=== PATIENT | male | born 1935 | race Caucasian/White ===

== ENCOUNTER 2017-03-26 19:58 | Emergency (ER) | payer MEDICARE, OTHER, SELFPAY ==
[2017-03-26 19:59] VITALS: BP 133/69; PULSE 89; RESP 15; TEMP 37.2; O2SAT 94; BMI 23.9
[2017-03-26 20:28] LABS: Mucous, Urine 0 SEEN /hpf (<or=2+)
--- NOTE | 2017-03-26 20:28 | ED.DCSUM_ITS ---
- ER Visit Summary Date of Service: 03/26/17 Chief Complaint: Fever, myalgias History of Present Illness: The patient is a 81 M who presents to the emergency department with 4 days of myalgias and arthralgias. The patient also had decreased energy. He states over the past 8 days, he has had some urinary frequency and urgency. He states that he has had no pain with urination. He denies any rectal pain or change in bowel habits. Over the past few days, he has had some chills and myalgias. He states he just feels weak and rundown. He spoke with his physician, Dr. Miller, who referred him to the emergency department. He denies headache or blurry vision. He has not taken any medication for this. He denies any diarrhea or constipation. Physical Examination: Vital signs reviewed General: Well-nourished, well-developed Head: Normocephalic, atraumatic Eyes: Pupils equal and reactive, extraocular muscles intact Neck, supple, no lymphadenopathy Heart: Regular rate and rhythm Respiratory: No distress, clear bilaterally Abdomen: Soft, nontender, nondistended, no peritoneal signs Back: Nontender Extremities: Nontender, no edema, no cords Skin: Normal color no rash Neuro: Alert and oriented, no focal or lateralizing deficits Test Results: [] Emergency Department Course and Treatment: The patient is very well-appearing on exam. He has no significant pain. He is up and having some myalgias. I did obtain a flu which is negative. His chest x-rays unremarkable. Screening labs show mild leukocytosis but are otherwise unremarkable. His urine does show definitive evidence of infection. The patient has no fever here. He has no other systemic symptoms. I do feel that he is safe for outpatient therapy. I discussed the patient with Dr. Miller for close follow-up. He will be given a dose of IV Rocephin. His urine is cultured. He will be continued on Keflex at home. The patient has any return return of symptoms or worsening symptoms, he will return to the emergency department. He and are comfortable with this plan of care. Treatment Plan: [] Disposition: Discharge Impression:. Acute cystitis This note was generated with [employer] software. It may contain incorrect words, spelling, and punctuation that were not noted in review of the chart prior to signing ED Disposition - Plan for ED Patient: Disposition: Home or Assisted Living Chief Complaint: General Illness Instructions: ED UTI Cystitis Male Prescriptions: Cephalexin [Keflex] 500 mg PO Q8 #30 cap Referrals: Arlin Tapia DO [Primary Care Provider] -
[2017-03-26 20:30] LABS: Color, Urine Yellow (Yellow); Glucose, Dipstick Normal (Normal); Ketone-Dipstick 5 mg/dl (Negative); Leukocyte Esterase-Dipstick 500 /ul (Negative); Nitrite-Dipstick Positive (Negative); Occult Blood-Urine 150 /ul (Negative); Protein-Dipstick 100 mg/dl (Negative); Urine Bilirubin Dipstick Negative (Negative); Urine Clarity Sl. Cloudy (Clear); Urine Urobilinogen 1 mg/dl (Normal)
[2017-03-26 20:35] LABS: Absolute Lymphocyte Count 1.67 X10^3/ul (0.83-4.51); Absolute Neutrophil Count 8.4 X10^3/uL (2.0-7.7); Basophil# 0.03 X10^3/uL; Basophil% 0.3 % (0-1); Eosinophil# 0.08 X10^3/uL; Eosinophils% 0.7 % (0-5); Hematocrit 35.5 % (40-54); Hemoglobin 11.4 g/dl (13.0-16.5); Lymphocyte # 1.67 X10^3/ul (4.0); Lymphocyte % 14.1 % (19-41); Mean Corp Hgb Conc 32.1 g/gl (32-36); Mean Corpuscular Hgb 26.3 pg (27.0-32.0); Mean Platelet Vol. 9.6 fl (6.2-12.0); Monocyte# 1.64 X10^3/uL; Monocyte% 13.8 % (0-10); Neutrophil # 8.44 X10^3/uL (2.7-7.7); Platelet Count 235 K/mm3 (150-450); RBC Distribution Width CV 13.7 % (11.6-14.6); RBC Distribution Width SD 41.8 fl (35.1-43.9); Red Blood Count 4.33 M/mm3 (4.6-6.2); White Blood Count 11.9 K/mm3 (4.4-11.0)
[2017-03-26 20:36] LABS: Differential Indicated SCAN CRITERIA MET; POSITIVE COUNT NO; POSITIVE DIFFERENTIAL YES; POSITIVE MORPHOLOGY NO
[2017-03-26 20:36] LABS: White Blood Cells >100 SEEN /hpf (0-5)
[2017-03-26 20:37] LABS: Amorphous Sediment 1+; Bacteria 4+ /hpf (None Seen); Red Blood Cells-Urine 5-10 SEEN /hpf (0-5)
[2017-03-26 20:38] LABS: Squamous Epithelial Cells - UA 0-5 SEEN /hpf (0-5)
[2017-03-26 20:41] LABS: Anion Gap 9 (5-15); BUN 21 mg/dL (7-18); BUN/Creat Ratio 21.6 RATIO (10-20); Calcium,Total 8.9 mg/dL (8.5-10.1); Chloride 102 mmol/L (98-107); Creatinine, Serum 0.97 mg/dL (0.70-1.30); EST Glomerular Filtration Rate 79 mL/min (>60); Est Glom Filt Rate - Afr Amer 95 mL/min (>60); Estimated Creatinine Clearance 51.95 ml/min; Glucose 136 mg/dL (74-106); Potassium 3.8 mmol/L (3.5-5.1); Sodium Level 136 mmol/L (136-145)
--- NOTE | 2017-03-26 20:44 | RAD_ITS ---
XR Chest 2 Views INDICATION: FEVER COMPARISON: April 2015 TECHNIQUE: 2 views of the chest FINDINGS: Sternotomy wires and mediastinal clips are noted. The heart size is within normal limits. Mediastinal and bilateral hilar calcified lymph nodes are seen. The lungs demonstrate coarsened interstitial markings and are otherwise clear. RAD/Chest PA and Lateral IMPRESSION: COPD. No active infiltrate. at 2111 Reported and signed by: Mi Ramírez MD Electronically Signed: Mi Ramírez MD at 20:09 EST Tel , Service support ,
[2017-03-26 21:02] LABS: Hypochromasia 1+
--- NOTE | 2017-03-26 21:08 | NURSING ---
PAGED DR. SIMMONS
--- NOTE | 2017-03-26 21:15 | NURSING ---
DR. SIMMONS CALLED BACK
[2017-03-26] MEDS: Ceftriaxone 1 GM/50 ML BAG IV (21:27)
[2017-03-26 22:38] VITALS: BP 129/87; PULSE 79; RESP 18; O2SAT 98
[2017-03-26 22:40] VITALS: BP 129/68; PULSE 79; RESP 18; O2SAT 95
== END 2017-03-26 22:42 | disposition home or self-care (01) ==
PROVIDERS: Emergency Provider Emergency Medicine; Family Provider Internal Medicine; PCP Internal Medicine
DX: N30.00 Acute cystitis without hematuria (principal); D72.829 Elevated white blood cell count, unspecified; I25.10 Atherosclerotic heart disease of native coronary artery without angina pectoris; I25.2 Old myocardial infarction; I10 Essential (primary) hypertension; Z79.01 Long term (current) use of anticoagulants; Z79.84 Long term (current) use of oral hypoglycemic drugs; Z79.899 Other long term (current) drug therapy
CPT/HCPCS: 71046; 80048; 81001; 85025; 87077; 87086; 87088; 87186; 87804; 96365; 99283; J7030; J7050; A4216

== ENCOUNTER → 2017-04-27 15:09 | Outpatient (CLI) | payer MEDICARE, OTHER, SELFPAY ==
--- NOTE | 2017-04-27 15:12 | RAD_ITS ---
STUDY: X-RAY - PELVIS AND RIGHT HIP REASON FOR EXAM: Right hip and low back pain. TECHNIQUE: Radiological exam, hip, unilateral, with pelvis when performed; 2 or 3 views. COMPARISON: None. FINDINGS: There is vascular calcification. Normal bilateral iliac wings, sacroiliac joints and visualized sacrum. Normal bilateral superior and inferior pubic rami. Normal pubic symphysis. Normal bilateral ischial tuberosities. Normal visualized femoral head. Normal acetabulum. There is a very small marginal osteophyte of the right femoral head without joint space narrowing. RAD/Hip 2-3 Views with Pelvis IMPRESSION: Very small marginal osteophyte of the right femoral head without joint space narrowing. Electronically Signed: Ethan Mcknight MD at 9:55 EDT Tel , Service support ,
--- NOTE | 2017-04-27 15:12 | RAD_ITS ---
STUDY: X-RAY - LUMBAR SPINE REASON FOR EXAM: Male, 81 years old. Back pain with right radiculopathy TECHNIQUE: Five view(s) of the lumbar spine were obtained. COMPARISON: None FINDINGS: Normal lumbar lordosis. There is very minimal S-shaped scoliosis of the lower spine. There is minimal retrolisthesis of L5 on S1. There are small osteophytes scattered in the lumbar spine. Vertebral body heights are maintained. There is marked disc space narrowing at L5-S1. There is moderate disc space narrowing at L1-2, L3-4 and L4-5. There is atherosclerotic calcification of the abdominal aorta without a demonstrated aneurysm. RAD/L/S Spine Min 4 Views IMPRESSION: There are marked degenerative disc changes at L5-S1. There are moderate degenerative disc changes at L1-2, L3-4 and L4-5. Electronically Signed: Cherri Josue MD at 9:41 EDT Tel Direct: [phone], Service support ,
== END ==
PROVIDERS: Family Provider Internal Medicine; PCP Internal Medicine; Visit Provider Internal Medicine
DX: M54.5 Low back pain (principal); M79.609 Pain in unspecified limb
CPT/HCPCS: 72110; 73502

== ENCOUNTER → 2017-05-02 08:43 | Outpatient (CLI) | payer MEDICARE, OTHER, SELFPAY ==
--- NOTE | 2017-05-02 08:45 | RAD_ITS ---
STUDY: X-RAY - ESOPHAGUS (BARIUM SWALLOW) WITH FLUOROSCOPY REASON FOR EXAM: Male, 81 years old. Dysphagia for solids. TECHNIQUE: 19 view(s) of the esophagus were obtained following swallowing of barium. FLUOROSCOPY TIME (if supplied): (0:30) minutes/seconds COMPARISON: None. FINDINGS: There is no demonstrated esophageal foreign body. There is no demonstrated stricture or mucosal abnormality. Moderate sized hiatal hernia with gastroesophageal reflux. The patient ingested a 12 mm tablet of barium without any difficulty. There is atherosclerotic tortuosity of the aortic arch and descending thoracic aorta. Normal visualized pulmonary parenchyma. There are diffuse degenerative changes of the visualized thoracic spine. RAD/Esophagus Only IMPRESSION: Moderate sized hiatal hernia with gastroesophageal reflux. Electronically Signed: Adair Georges MD at 10:32 EDT Tel [phone], Service support ,
== END ==
PROVIDERS: Family Provider Internal Medicine; PCP Internal Medicine; Visit Provider Internal Medicine
DX: I13.10 Hypertensive heart and chronic kidney disease without heart failure, with stage 1 through stage 4 chronic kidney disease, or unspecified chronic kidney disease (principal)
CPT/HCPCS: 74220

== ENCOUNTER 2017-06-08 14:00 | Outpatient (RCR) | payer MEDICARE, OTHER, SELFPAY ==
--- NOTE | 2017-05-30 09:20 | HP.PTEVAL_ITS ---
Patient's Visit Information JM HARE is a 81 year old M referred to Physical Therapy by Arlin Tapia DO with a diagnosis of LOW BACK PAIN. Date of Evaluation: 05/30/17 Physical Therapist: Anastasia Gutierrez - Visit Plan Frequency: 2-3x /Week Duration: 4-6 Weeks Plan: GAIT TRAINING WITH STRAIGHT CANE. LUMBAR US. POSTURE CORRECTION/ STRENGTHENING, INSTRUCTION IN APPROPRIATE BODY MECHANICS AND ACTIVITY MODIFICATIONS. DLS STARTING WITH A NEUTRAL SPINE PROGRESSING ROM TOLERATED. TORRES LE ROM, STRETCHING AND STRENGTHENING. HEP INSTRUCTION. - Subjective Subjective: Diagnosis: LOW BACK PAIN. 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 Disability: NO. Present symptoms: LOW BACK PAIN. PATIENT REPORTS HE REALLY DOESN'T GET PAIN, NUMBNESS OR TINGLING IN HIS LEGS BUT HE GET LEG WEAKNESS RIGHT > LEFT. Present since: YEARS. Pain Scale: WORST 5/10, LEAST 0/10. Currently: 03/26. Commenced as a result of: NO APPARENT REASON. Symptoms at onset: RIGHT LEG WEAKNESS. Worse: SHOPPING, WORKING OUTSIDE, WALKING A LOT AND STANDING. Better: SITTING, LYING DOWN. Disturbed sleep: NO. Previous history/Previous treatment: UNREMARKABLE BUT PATIENT REPORTS HE NOTICED HIS RIGHT LE WEAKNESS AFTER HIS STROKE ABOUT 15 YEARS AGO. Coughing/ sneezing/straining: NEGATIVE. Gait: PATIENT REPORTS THAT GRADUALLY OVER TIME HIS RIGHT LE HAS GOTTEN WEAKER AND HE HAS STARTED TO LIMP AND SOMETIMES DRAG HIS RIGHT LEG. FIRST THING IN THE MORNING HE CAN WALK PRETTY GOOD BUT SOON AFTER THE DAY STARTS TO PROGRESS HE STARTS TO LIMP AND HIS RIGHT LEG DOESN'T WANT TO WORK RIGHT. HE ALS HAS TROUBLE PUTTING HIS SHOE AND SOCK ON HIS RIGHT LE COMPARED TO THE LEFT. STATES HE TO BE CAREFUL NOT TO MOVE TOO FAST WALKING SO HE DOESN'T TRIP. HE HAS FALLEN DUE TO GETTING HIS FEET TANGLED UP BUT STATES IT HAS BEEN AWHILE SINCE HE FELL. Difficulty initiating urinatin: NO. Accidents: NO. Unexplained weight loss: NO. Imaging: RECENT LUMBAR X- RAY FINDINGS: Normal lumbar lordosis. There is very minimal S-shaped scoliosis of the. lower spine. There is minimal retrolisthesis of L5 on S1. There are small osteophytes scattered in the lumbar spine. Vertebral body. heights are maintained. There is marked disc space narrowing at L5-S1. There is moderate disc space narrowing at L1-2, L3-4 and L4-5. There is atherosclerotic calcification of the abdominal aorta without a. demonstrated aneurysm. PMH: QUADRUPLE BYPASS ABOUT 10 YEARS AGO. STROKE ABOUT 15 YEARS AGO. SEE MORE BELOW. PATIENT RELATES SOME OF THE WEAKNESS IN HIS RIGHT LEG TO HIS STROKE. - Objective Sitting Posture: POOR. Standing Posture: POOR. Lordosis: REDUCED. Lateral shift: NO. Relevant shift: N/A. Active Correction of posture: NE. Other Observations: INDEP GAIT INTO PT WITHOUT AD LIMPING ON RIGHT LE. HE STUMBLED TURNING IN THE TREATMENT ROOM BUT REGAINED HIS BALANCE INDEP'LY. HIS IS REALLY UNSAFE WITHOUT AD DUE TO DECREASED RIGHT LE PROPRIOCEPTION AND WEAKNESS BUT PATIENT IS RELUCTANT TO USE AD BUT IT SEEMS THAT HE WILL CONSIDER. Motor deficit: LLE STRENGTH 5/5 WITH MMT. RIGHT LE: HIP 3-/5, KNEE EXT 3-/5, KNEE FLEX 4/5, ANKLE DORSIFLEX 4-/5. Sensory deficit: TORRES LE LIGHT TOUCH SENSATION IS INTACT AND SYMMETRICAL. ROM deficit: TIGHT TORRES HS'S, GASTROC SOLEUS COMPLEXS AND HIP FLEXORS RIGHT > LEFT. PATIENT ABLE TO DO SKTC TORRES WITHOUT INCREASED HIP PAIN. Reflexes: 2/2 TORRES LE'S. Dural Signs: NEGATIVE TORRES LE DURAL SIGNS. Lumbar mvmt loss: flex - MOD. ext - MICHAEL. R SG - MICHAEL. L SG - MOD. Core strength: POOR. Palpation: NO ACUTE TENDERNESS WITH THORACIC AND LUMBAR SPINE PALPATION. ALSO NOT TENDER IN PELVIS OR HIPS. - Goals Goal 1:: DECREASE C/O LOW BACK AND RLE SX'S. Goal Time Frame: 4-6 Weeks Goal 2:: IMPROVE WALKING, STANDING, LIFTING, STANDING, SOCIAL LIFE AND HOMEMAKING FUNCTION Goal Time Frame: 4-6 Weeks Goal 3:: INSTRUCT IN PROPHYLAXIS Goal Time Frame: 4-6 Weeks - Rehabilitation Potential Rehabilitation Potential: Fair - Anticipated Interventions Patient/Client Instruction: Educate patient on: Condition, Plan of Care, Risk Factors, Benefits of Fitness Program For the Purpose of:: To improve self management Therapeutic Exercise to Include: Strength training, Body mechanics, Postural training, Flexibilty training, Dynamic Lumbar Stabilization For the Purpose of:: To improve ability of physical actions for home/community/ work/leisure Functional Training to Include: Gait training For the Purpose of:: To improve safety with gait Manual Therapy Techniques to Include: Soft tissue mobilization For the Purpose of:: To decrease pain, To increase ROM Ultrasound (thermal/non thermal): Yes For the Purpose of:: To decrease pain, To increase ROM Thank you for the opportunity to evaluate your patient. For Medicare and Medicare HMO plans, please review the plan of care and approve it. It will need to be FAXED BACK to us at [phone] for Medicare purposes. Please let me know if there are questions or concerns regarding this plan of care. Physician Signature: Date:
--- NOTE | 2017-09-18 12:15 | HP.PTDCNRP_ITS ---
HP - Discharge Summary (1) - Patient Information JM HARE was seen in my office for initial evaluation on 05/30/17. The following Plan of Care was established for this patient: Initial Frequency: 2-3x /Week Initial Duration: 4-6 Weeks - Anticipated Interventions Patient/Client Instruction: Educate patient on: Condition, Plan of Care, Risk Factors, Benefits of Fitness Program For the Purpose of:: To improve self management Therapeutic Exercise to Include: Strength training, Body mechanics, Postural training, Flexibilty training, Dynamic Lumbar Stabilization For the Purpose of:: To improve ability of physical actions for home/community/ work/leisure Functional Training to Include: Gait training For the Purpose of:: To improve safety with gait Manual Therapy Techniques to Include: Soft tissue mobilization For the Purpose of:: To decrease pain, To increase ROM Ultrasound (thermal/non thermal): Yes For the Purpose of:: To decrease pain, To increase ROM This patient was last seen in our office 06/08/17. Pertinent comments regarding their Physical therapy will appear below: This patient has not returned to Physical Therapy and is appropriate to return to MD for further follow-up as needed. At this point I will be discontinuing this patient from physical therapy. I would be happy to see this patient again in the future if found appropriate by the physician. Thank you! Anastasia Gutierrez
== END 2017-06-08 19:00 | disposition home or self-care (01) ==
LOC: PT 14:00
PROVIDERS: Family Provider Internal Medicine; PCP Internal Medicine; Visit Provider Internal Medicine
DX: M54.5 Low back pain (principal)
CPT/HCPCS: 97035; 97110; 97162; 97530

== ENCOUNTER → 2018-03-30 12:43 | Outpatient (CLI) | payer MEDICARE, OTHER, SELFPAY ==
--- NOTE | 2018-03-30 12:47 | CDU_ITS ---
Reason For Study: Carotid stenosis Rt. Velocities/BP Lt. Velocities/BP Prox CCA 140.0/14.1 cm/sec. Prox CCA 77.4/15.2 cm/sec. Mid CCA 54.2/9.8 cm/sec. Mid CCA 68.6/14.7 cm/sec. Dist CCA 46.0/10.2 cm/sec. Dist CCA 63.3/15.2 cm/sec. Prox ICA 47.1/12.2 cm/sec. Prox ICA 49.8/19.3 cm/sec. Mid ICA 55.4/16.9 cm/sec. Mid ICA 84.4/23.5 cm/sec. Dist ICA 81.5/23.5 cm/sec. Dist ICA 71.4/21.4 cm/sec. Rt. ICA/CCA = 1.5. Lt. ICA/CCA = 1.2. Prox ECA 71.5/7.5 cm/sec. Prox ECA 58.4/10.5 cm/sec. Rt. Vert. 28.7/11.1 cm/sec. Lt. Vert. 53.9/13.5 cm/sec. Right Extracranial There is no significant atherosclerotic plaque noted in the right common carotid artery. There is heterogeneous, smooth atherosclerotic plaque noted in the right internal carotid artery. There is no significant atherosclerotic plaque noted in the right external carotid artery. Antegrade flow is noted in the right vertebral artery. Left Extracranial There is intimal thickening but no significant atherosclerotic plaque noted in the left common carotid artery. There is heterogeneous, irregular atherosclerotic plaque noted in the left internal carotid artery. There is heterogeneous, smooth atherosclerotic plaque noted in the left external carotid artery. Antegrade flow is noted in the left vertebral artery. Procedure Carotid Duplex [id number]. Exam performed in department. Interpretation Summary Mild (<50%) stenosis right extracranial internal carotid. Mild (<50%) stenosis left extracranial internal carotid. Flow within the vertebral arteries is antegrade bilaterally. Ordering Physician: Arlin Tapia Referring Physician: Arlin Tapia Performed By: Elena Ramos RVT
== END ==
PROVIDERS: Family Provider Internal Medicine; PCP Internal Medicine; Referring Provider Internal Medicine; Visit Provider Internal Medicine
DX: I65.23 Occlusion and stenosis of bilateral carotid arteries (principal)
CPT/HCPCS: 93880

== ENCOUNTER → 2018-05-17 10:52 | Outpatient (CLI) | payer MEDICARE, OTHER, SELFPAY ==
--- NOTE | 2018-05-17 10:54 | ART_ITS ---
Reason For Study: PVD Procedure A bilateral lower extremity continuous wave Doppler with analog waveform analysis,segmental pressures,and ankle brachial indexes with exercise. Left Segmental Pressures Left brachial= 140mmHg. Left posterior tibial artery = 163mmHg. Left dorsalis pedis artery = 162mmHg. Left digit = 103 mmHg. Right Segmental Pressures Right brachial= 131mmHg. Right posterior tibial artery = 190mmHg. Right dorsalis pedis artery = 182mmHg. Right digit = 111 mmHg. Indices The right ankle brachial index by the posterior tibial artery is 1.36. The right ankle brachial index by the dorsalis pedis is 1.30. The right digital-brachial index is 0.79. The right ankle brachial index by the posterior tibial artery post exercise is 1.25. The left ankle brachial index by the posterior tibial artery is 1.16. The left ankle brachial index by the dorsalis pedis is 1.16. The left digital-brachial index is 0.74. The left posterior tibial artery index post exercise is 1.18. Interpretation Summary 1. Bilateral no evidence occlussive disease with triphasic flow and TASHA 1.36/1.16 and no change with exercise. Ordering Physician: Arlin Tapia Referring Physician: Arlin Tapia Performed By: Amalia Balbuena RDCS/RVT
== END ==
PROVIDERS: Family Provider Internal Medicine; PCP Internal Medicine; Referring Provider Internal Medicine; Visit Provider Internal Medicine
DX: I73.9 Peripheral vascular disease, unspecified (principal)
CPT/HCPCS: 93924

== ENCOUNTER → 2019-02-23 14:53 | Outpatient (CLI) | payer MEDICARE, OTHER, SELFPAY ==
[2018-08-30 14:03] VITALS: BMI 24.7
--- NOTE | 2019-02-23 14:56 | RAD_ITS ---
STUDY: X-RAY - RIGHT KNEE REASON FOR EXAM: Male, 83 years old. right knee stiffness, pt states his knee feels crooked TECHNIQUE: 4 view(s) of the knee. Weight-bearing COMPARISON: None. FINDINGS: Normal visualized distal femur. Normal visualized proximal tibia and fibula. Normal proximal tibiofibular articulation. There is mild degenerative arthrosis of the medial femorotibial compartment. Normal lateral femorotibial compartment. There is mild degenerative arthrosis of the patellofemoral articulation. There is no demonstrated joint effusion. The soft tissue structures are unremarkable. RAD/Knee 4 or More Views IMPRESSION: Only minimal degenerative change Electronically Signed: Charlie Randolph DO at 18:17 EST Tel , Service support ,
== END ==
PROVIDERS: Family Provider Internal Medicine; PCP Internal Medicine; Referring Provider Internal Medicine; Visit Provider Internal Medicine
DX: M25.661 Stiffness of right knee, not elsewhere classified (principal)
CPT/HCPCS: 73564

== ENCOUNTER → 2019-04-09 13:36 | Outpatient (CLI) | payer MEDICARE, OTHER, SELFPAY ==
[2018-08-30 14:03] VITALS: BMI 24.7
[2019-03-05 13:22] VITALS: BMI 24.9
--- NOTE | 2019-04-09 13:42 | CDU_ITS ---
Reason For Study: STENOSIS Rt. Velocities/BP Lt. Velocities/BP Prox CCA 120/14 cm/sec. Prox CCA 113/14 cm/sec. Mid CCA 63/12 cm/sec. Mid CCA 68/18 cm/sec. Dist CCA 57/14 cm/sec. Dist CCA 59/17 cm/sec. Prox ICA 59/17 cm/sec. Prox ICA 63/23 cm/sec. Mid ICA 81/20 cm/sec. Mid ICA 103/34 cm/sec. Dist ICA 67/20 cm/sec. Dist ICA 55/19 cm/sec. Rt. ICA/CCA = .7. Lt. ICA/CCA = .9. Prox ECA 87/6 cm/sec. Prox ECA 73/9 cm/sec. Rt. Vert. 28/11 cm/sec. Lt. Vert. 65/16 cm/sec. Right Extracranial There is homogeneous, smooth atherosclerotic plaque noted in the right common carotid artery. There is heterogeneous, irregular atherosclerotic plaque noted in the right internal carotid artery. There is homogeneous, smooth atherosclerotic plaque noted in the right external carotid artery. Antegrade flow is noted in the right vertebral artery. Left Extracranial There is homogeneous, smooth atherosclerotic plaque noted in the left common carotid artery. There is heterogeneous, smooth atherosclerotic plaque noted in the left internal carotid artery. There is heterogeneous, irregular atherosclerotic plaque noted in the left external carotid artery. Antegrade flow is noted in the left vertebral artery. Procedure Carotid Duplex [id number]. Exam performed in department. Interpretation Summary Mild (<50%) stenosis right extracranial internal carotid. Mild (<50%) stenosis left extracranial internal carotid. Flow within the vertebral arteries is antegrade bilaterally. Ordering Physician: ABIMBOLA MCMAHON Referring Physician: ABIMBOLA MCMAHON Performed By: Xiao Escobar, CRISTINACS, RVT
== END ==
PROVIDERS: Family Provider Internal Medicine; PCP Internal Medicine; Referring Provider Internal Medicine; Visit Provider Internal Medicine
DX: I65.23 Occlusion and stenosis of bilateral carotid arteries (principal)
CPT/HCPCS: 93880

== ENCOUNTER → 2020-03-20 09:50 | Outpatient (CLI) | payer MEDICARE, OTHER, SELFPAY ==
[2020-01-14 12:58] VITALS: BMI 25.6
--- NOTE | 2020-03-20 09:53 | CDU_ITS ---
Reason For Study: bilateral carotid stenosis Rt. Velocities/BP Lt. Velocities/BP Prox CCA 104.7/6.9 cm/sec. Prox CCA 68.4/12.4 cm/sec. Mid CCA 55.3/9.1 cm/sec. Mid CCA 49.8/9.1 cm/sec. Dist CCA 45.4/12.4 cm/sec. Dist CCA 48.7/11.3 cm/sec. Prox ICA 52.0/9.1 cm/sec. Prox ICA 52.0/14.6 cm/sec. Mid ICA 56.4/14.6 cm/sec. Mid ICA 69.5/14.6 cm/sec. Dist ICA 72.9/26.7 cm/sec. Dist ICA 110.2/26.7 cm/sec. Rt. ICA/CCA = 1.3. Lt. ICA/CCA = 2.2. Prox ECA 82.7/10.2 cm/sec. Prox ECA 78.3/10.2 cm/sec. Rt. Vert. 32.2/10.2 cm/sec. Lt. Vert. 57.5/11.3 cm/sec. Right Extracranial There is homogeneous, smooth atherosclerotic plaque noted in the right common carotid artery. There is heterogeneous, irregular atherosclerotic plaque noted in the right internal carotid artery. There is intimal thickening but no significant atherosclerotic plaque noted in the right external carotid artery. Antegrade flow is noted in the right vertebral artery. Left Extracranial There is homogeneous, smooth atherosclerotic plaque noted in the left common carotid artery. There is heterogeneous, irregular atherosclerotic plaque noted in the left internal carotid artery. There is heterogeneous, irregular atherosclerotic plaque noted in the left external carotid artery. Antegrade flow is noted in the left vertebral artery. Procedure Carotid Duplex [id number]. This is a Carotid Duplex examination using B-mode, color flow and specral Doppler. The exam was diagnostic. Exam performed in department. Interpretation Summary Mild (<50%) stenosis right extracranial internal carotid. Mild (<50%) stenosis left extracranial internal carotid. Flow within the vertebral arteries is antegrade bilaterally. Ordering Physician: Arlin Tapia Performed By: Parker Estrada RVT
== END ==
PROVIDERS: PCP Internal Medicine; Referring Provider Internal Medicine; Visit Provider Internal Medicine
DX: I65.23 Occlusion and stenosis of bilateral carotid arteries (principal)
CPT/HCPCS: 93880

== ENCOUNTER → 2020-10-28 12:37 | Outpatient (CLI) | payer MEDICARE, OTHER, SELFPAY ==
--- NOTE | 2020-10-28 13:45 | MRI_ITS ---
HISTORY: VERTIGO EXAMINATION: MR Brain WO/W Contrast TECHNIQUE: Multiplanar and multisequence MR images of the brain were obtained with and without IV gadolinium. IV Contrast dosage and agent: IV 13 mL Dotarem COMPARISON: None FINDINGS: BRAIN PARENCHYMA: No MRI evidence of hemorrhage. No evidence of acute infarct. Central and cortical involutional changes are noted. There is increased T2 and FLAIR signal abnormality in the periventricular white matter. No intracranial mass or mass effect. No abnormal contrast enhancement. There is preservation of the wood/white matter interface. Normal sella turcica, pituitary gland, infundibular stalk, optic chiasm and hypothalamus. The internal auditory canals are patent. Posterior fossa structures are unremarkable. CSF SPACES: Appropriate for age. No hydrocephalus. Basal cisterns are patent. VASCULAR SYSTEM: Normal flow voids in the major intracranial circulation. CALVARIUM, SKULL BASE, PARANASAL SINUSES AND MASTOID AIR CELLS: Clear. No discrete lytic or blastic abnormalities. ORBITS: Both globes, extraocular muscles, optic nerves and retrobulbar fat appear unremarkable. MRI/Brain W/WO Contrast IMPRESSION: Chronic involutional and white matter changes. No acute intracranial process. at 1545 Reported and signed by: Taiwo Crawford MD Electronically Signed: Taiwo Crawford MD at 15:44 EDT Tel , Service support ,
== END ==
PROVIDERS: PCP Internal Medicine; Referring Provider Internal Medicine; Visit Provider Internal Medicine
DX: R42 Dizziness and giddiness (principal)
CPT/HCPCS: 70553; A9575

== ENCOUNTER → 2020-11-07 10:20 | Outpatient (CLI) | payer MEDICARE, OTHER, SELFPAY ==
--- NOTE | 2020-11-08 10:52 | PFT ---
INTRODUCTION: The patient is an 85-year-old male that presents for pulmonary function studies secondary to a diagnosis of abnormal lung function test. Respiratory therapy reported good patient effort. Bronchodilators were used during testing. INTERPRETATION: Forced expiration spirometry demonstrates no evidence of a large airways obstructive ventilatory defect. There was no significant response to aerosolized bronchodilators. Spirograms are of good quality and plateau normally. Body plethysmography was performed and reveals a decreased TLC to 4.22 L, 79% of predicted, indicative of a mild restrictive ventilatory impairment. Diffusing capacity by single breath CO is within normal limits. IMPRESSION: Isolated mild restrictive ventilatory impairment with preserved diffusing capacity.
== END ==
PROVIDERS: PCP Internal Medicine; Visit Provider Internal Medicine
DX: R94.2 Abnormal results of pulmonary function studies (principal); Z23 Encounter for immunization
CPT/HCPCS: 94060; 94726; 94729

== ENCOUNTER → 2020-11-27 13:36 | Outpatient (CLI) | payer MEDICARE, OTHER, SELFPAY ==
--- NOTE | 2020-11-27 13:38 | CT_ITS ---
STUDY: CT CHEST WITHOUT CONTRAST REASON FOR EXAM: Male, 85 years old. RESTRICTIVE LUNG DISEASE RADIATION DOSAGE (If Supplied By Facility): CTDIvol = ( 7.72 ) mGy, DLP = ( 247.37 ) mGycm TECHNIQUE: Transaxial imaging was performed without the administration of intravenous contrast material. Multiplanar coronal and sagittal images were reformatted. Individualized dose optimization techniques were used for this CT. COMPARISON: Comparison is made with prior examination dated 05/02/2015. FINDINGS: Small calcified granuloma in the medial right upper lobe. Mild degree of emphysematous changes. Mild degree of scarring in the peripheral lateral aspect of the right upper lobe as well as in the region of the major fissure in the left hemithorax. There is also evidence of a mild degree of linear scarring in the lingula segment of the left upper lobe. There is no demonstrated pleural abnormality. Sternal cerclage wires and vascular clips are present from a prior sternotomy and coronary artery bypass graft procedure (CABG). There are calcifications of the coronary arteries. Calcified subcarinal lymph nodes. Calcified right hilar lymph nodes. Normal hilar regions. Normal unenhanced pulmonary arteries. There is atherosclerotic calcification of the aortic arch with tortuosity and elongation of the aortic arch and descending thoracic aorta. There are degenerative changes of the thoracic spine. Moderate sized hiatal hernia. There is a 1.3 cm cyst in the upper lateral aspect of the left kidney. There is a 1.5 cm cyst in the anterior upper aspect of the right kidney. CT/Chest without Contrast IMPRESSION: Minimal degree of emphysematous changes with scarring as described. No acute abnormality is seen. Electronically Signed: Adair Georges MD at 15:42 EDT , Service support ,
== END ==
PROVIDERS: PCP Internal Medicine; Referring Provider Internal Medicine; Visit Provider Internal Medicine
DX: J98.4 Other disorders of lung (principal)
CPT/HCPCS: 71250

== ENCOUNTER 2021-02-18 15:47 | Outpatient (CLI) | payer MEDICARE, OTHER, SELFPAY ==
--- NOTE | 2021-02-18 16:45 | MRI_ITS ---
History: LEG WEAKNESS- right, LBP Technique: T1 and T2 MR imaging of the lumbar spine performed without contrast enhancement in axial and sagittal planes. Comparison: Lumbar spine radiographs January 27, 2021 Findings: Alignment of the lumbar vertebral bodies is normal. Vertebral body height is normal. No bone marrow edema. Prominent multilevel disc space narrowing and mild vertebral body osteophytosis. Abdominal conus medullaris and cauda equina. Paraspinal soft tissues are normal. Multiple bilateral renal cysts. L1-2: Mild disc bulging and facet arthropathy causing narrowing of the neural foramina. No significant impingement on the thecal sac. L2-3: Mild disc bulging and facet arthropathy results in moderate narrowing of the left neural foramen. Significant narrowing of the spinal canal for right foramen. L3-4: Mild disc bulging, facet arthropathy and posterior ligamentous redundancy causes minimal impression on the thecal sac and mild to moderate narrowing of the neural foramina. L4-5: Posterior ligamentous redundancy and facet arthropathy noted resulting in moderate bilateral neuroforaminal narrowing. Left posterolateral disc osteophyte complex also impinges on the left neural foramen. L5-S1: Broad-based disc osteophyte complex, ligamentous redundancy and facet arthropathy result in minor impression on the thecal sac and moderate right and mild left neuroforaminal narrowing. IMPRESSION: Multilevel disc space narrowing, mild bony hypertrophy and facet arthropathy without significant spinal stenosis. Multilevel neural foraminal narrowing as described above. at 1031 Reported and signed by: Juan Francisco Rivers MD Electronically Signed: Juan Francisco Rivers MD at 10:30 EST Tel , Service support , MRI/Spine Lumbar (Routine)
== END 2021-02-18 23:59 | disposition short-term general hospital (02) ==
LOC: MRI 15:48
PROVIDERS: PCP Internal Medicine; Visit Provider Internal Medicine
DX: M48.061 Spinal stenosis, lumbar region without neurogenic claudication (principal); M46.96 Unspecified inflammatory spondylopathy, lumbar region; M62.81 Muscle weakness (generalized)
CPT/HCPCS: 72148

== ENCOUNTER 2021-02-24 06:41 | Outpatient (CLI) | payer MEDICARE, OTHER, SELFPAY ==
--- NOTE | 2021-02-24 09:04 | STRESSREP ---
Stress Test Report Date: 02-24-2021 Procedure: Pharmacologic stress nuclear imaging study Indications: Shortness of breath/dyspnea on exertion; CAD; CABG Consent: Per the patient Procedure: The patient underwent pharmacologic (Regadenoson 0.4mg ) evaluation with a peak heart rate of 92 beats per minute (68%predicted maximal heart rate) and a peak blood pressure of 150/82 mmHg. The baseline ECG demonstrated sinus bradycardia. The peak pharmacologic ECG demonstrated no obvious ECG changes. There was a rare PVC during recovery. There was no complaint of chest discomfort during pharmacologic infusion or recovery. The examination was discontinued secondary to completion of protocol. Impression: 1. Pharmacologic (Regadenoson) evaluation 2. Peak pharmacologic ECG with no obvious ECG changes. 3. There was a rare PVC during recovery. 4. Nuclear images pending Myocardial perfusion imaging study: Technique: The patient was injected with 11.6 millicuries of technetium 99m Cardiolite and subsequently rest SPECT Cardiolite nuclear imaging was obtained in the horizontal long, vertical long, and short axis views. The patient underwent pharmacologic (Regadenoson) evaluation with a peak heart rate of 92 beats per minute (68% percent predicted maximal heart rate) and a peak blood pressure of 150/82 mmHg. The patient was injected with 34.1 millicuries of technetium 99m Cardiolite and subsequently stress SPECT Cardiolite nuclear imaging was obtained in the horizontal long, vertical long, and short axis views. A gated Cardiolite study at peak stress was obtained. Interpretation: Rest and stress SPECT Cardiolite nuclear imaging status post realignment, normalization, and attenuation correction demonstrate relative uniform tracer uptake and myocardial perfusion appearing within normal limits. There is end systolic thickening and brightening. The gated Cardiolite study demonstrates myocardial thickening and inward wall motion. The reported LVEF is 54%. Impression: 1. Rest and stress SPECT Cardiolite nuclear imaging demonstrate relative uniform tracer uptake and myocardial perfusion appearing within normal limits. 2. The gated Cardiolite study reports an LVEF of 54%. This note was generated with StyleChat by [employer] software. It may contain incorrect words, spelling, and punctuation that were not noted in checking the note before signing.
== END 2021-02-24 23:59 | disposition short-term general hospital (02) ==
LOC: CVS 06:42
PROVIDERS: PCP Internal Medicine; Referring Provider Nurse Practitioner Family; Visit Provider Nurse Practitioner Family
DX: I25.10 Atherosclerotic heart disease of native coronary artery without angina pectoris (principal); I42.8 Other cardiomyopathies; I38 Endocarditis, valve unspecified; Z95.1 Presence of aortocoronary bypass graft
CPT/HCPCS: 78452; 93017; A9500; A4216; J2785

== ENCOUNTER 2021-05-21 15:58 | Outpatient (CLI) | payer MEDICARE, OTHER, SELFPAY ==
--- NOTE | 2021-05-21 16:19 | MRI_ITS ---
STUDY: MRI CERVICAL SPINE WITHOUT CONTRAST REASON FOR EXAM: Male, 85 years old. Evaluate for cervical spine mass or spinal stenosis TECHNIQUE: Standardized fat and water weighted pulse sequences were obtained in the sagittal and axial planes. COMPARISON: None FINDINGS: Normal foramen magnum and brainstem-cervical cord junction. Normal craniovertebral junction. Normal anterior atlantoaxial articulation. Normal odontoid process. Mild upper cervical kyphosis. Normal vertebral bodies and posterior osseous elements. C2-3: Normal endplates. Moderate disc space height narrowing. Normal central canal and intervertebral neural foramina. C3-4: Minimal MODIC type I degenerative vertebral marrow edema underneath the posterior aspect of the vertebral endplates. Moderate disc space height narrowing. Normal central canal. Mild stenosis of the intervertebral neural foramina due to osteophytes arising from the uncovertebral joints. C4-5: Pronounced disc space height narrowing with partial ankylosis a peripherally. Normal central canal and intervertebral neuroforamina. Ankylosis of the right facet joint. C5-6: Ankylosis of the vertebral bodies. Right posterior marginal spurs. Normal central canal and intervertebral neural foramina. C6-7: Normal endplates. Moderate disc space height narrowing. Normal central canal and right intervertebral neural foramen. Moderately pronounced stenosis of the left intervertebral neural foramen. C7-T1: Normal endplates. Normal disc height, signal and morphology. Normal central canal and intervertebral neural foramina. T1-T2: Normal endplates. Normal disc height. Minimal degenerative anterolisthesis of T1 on T2. Normal central canal and intervertebral neural foramina. T2-T3: (Sagittal only). Normal endplates. Normal disc height. Minimal degenerative anterolisthesis of T2 on T3. Minimal ventral extra dural defect due to small posterior bulging annulus. Normal central canal and intervertebral neural foramina. Prominent T3 benign vertebral body hemangioma. T3-T4 and T4-T5: (Sagittal only). Normal endplates. Normal disc height and morphology. Normal central canal and intervertebral neural foramina. Normal cervical cord. Normal upper thoracic spinal cord. Normal included brainstem and cerebellum. Normal visualized soft tissue structures. MRI/Spine Cervical (Routine) IMPRESSION: 1. Moderately pronounced stenosis of the left C6-C7 intervertebral neural foramen. 2. Mild stenosis of the C3-C4 intervertebral neural foramina and minimal MODIC type I degenerative vertebral marrow edema underneath the posterior aspect of vertebral endplates. 3. Partial ankylosis of C4-C5 vertebral bodies and ankylosis of the right C4-C5 facet joint. 4. Ankylosis of the C5 and C6 intervertebral bodies. 5. Minimal degenerative anterolisthesis of T1 on T2 and T2 on T3. 6. No MRI evidence of cervical extruded disc fragment. Electronically Signed: Matthew Carpenter MD at 14:13 EDT ,
== END 2021-05-21 23:59 | disposition home or self-care (01) ==
PROVIDERS: PCP Internal Medicine; Visit Provider Psychiatry & Neurology Neurology
DX: G95.9 Disease of spinal cord, unspecified (principal); M54.2 Cervicalgia; R53.1 Weakness
CPT/HCPCS: 72141

== ENCOUNTER 2021-05-22 09:49 | Outpatient (CLI) | payer MEDICARE, OTHER, SELFPAY ==
--- NOTE | 2021-05-22 09:51 | CDU_ITS ---
Reason For Study: CAROTID STENOSIS Rt. Velocities/BP Lt. Velocities/BP Prox CCA 111.2/10.8 cm/sec. Prox CCA 65.3/13.9 cm/sec. Mid CCA 47.1/10.9 cm/sec. Mid CCA 45.3/10.4 cm/sec. Dist CCA 35.0/10.9 cm/sec. Dist CCA 54.0/10.4 cm/sec. Prox ICA 57.0/10.9 cm/sec. Prox ICA 60.1/11.0 cm/sec. Mid ICA 67.0/20.7 cm/sec. Mid ICA 73.3/16.6 cm/sec. Dist ICA 97.7/25.2 cm/sec. Dist ICA 121.1/27.9 cm/sec. Rt. ICA/CCA = 97.7/47.1=2.1. Lt. ICA/CCA = 121.1/45.3=2.7. Prox ECA 77.9/8.7 cm/sec. Prox ECA 69.7/11.3 cm/sec. Rt. Vert. 36.8/12.4 cm/sec. Lt. Vert. 68.0/17.5 cm/sec. Right Extracranial There is homogeneous, smooth atherosclerotic plaque noted in the right common carotid artery. There is heterogeneous, irregular atherosclerotic plaque noted in the right internal carotid artery. The tortuous nature of the right internal carotid artery may result in flow velocities overestimating the degree of stenosis. There is intimal thickening but no significant atherosclerotic plaque noted in the right external carotid artery. Antegrade flow is noted in the right vertebral artery. Left Extracranial There is homogeneous, smooth atherosclerotic plaque noted in the left common carotid artery. There is heterogeneous, irregular atherosclerotic plaque noted in the left internal carotid artery. The tortuous nature of the left internal carotid artery may result in flow velocities overestimating the degree of stenosis. There is heterogeneous, irregular atherosclerotic plaque noted in the left external carotid artery. Antegrade flow is noted in the left vertebral artery. Procedure Carotid Duplex 73648. This is a Carotid Duplex examination using B-mode, color flow and specral Doppler. Exam performed in department. VL/Carotid Duplex Ultrasound Interpretation Summary Mild (<50%) stenosis right extracranial internal carotid. Mild (<50%) stenosis left extracranial internal carotid. Flow within the vertebral arteries is antegrade bilaterally. Ordering Physician: Arlin Tapia Referring Physician: Arlin Tapia Performed By: Trina Sifuentes, HAMIDA, RVT
== END 2021-05-22 23:59 | disposition home or self-care (01) ==
LOC: CVS 09:50
PROVIDERS: PCP Internal Medicine; Referring Provider Internal Medicine; Visit Provider Internal Medicine
DX: I65.23 Occlusion and stenosis of bilateral carotid arteries (principal)
CPT/HCPCS: 93880

== ENCOUNTER 2021-05-27 13:00 | Outpatient (RCR) | payer MEDICARE, OTHER, SELFPAY ==
--- NOTE | 2021-05-06 14:17 | HP.PTEVAL ---
Patient's Visit Information JM HARE is a 85 year old M referred to Physical Therapy by Dr. 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 Date of Evaluation: 05/06/21 Physical Therapist: Anastasia Gutierrez, PT, Cert MDT - Visit Plan Frequency: 2-3x /Week Duration: 4-6 Weeks Plan: WRITTEN HEP INSTRUCTION. POSTURE CORRECTION/STRENGTHENING, INSTRUCTION IN APPROPRIATE BODY MECHANICS AND ACTIVITY MODIFICATIONS. DLS STARTING WITH A NEUTRAL SPINE PROGRESSING ROM TOLERATED. TORRES LE ROM, STRETCHING AND STRENGTHENING. - Subjective Work/Leisure: RETIRED. PATIENT REPORTS HE IS VERY ACTIVE. STATES HE PAVILLION LAST YEAR PRETTY MUCH BY HIMSELF. ALSO PUT HEAVY PAVERS IN. DID HAND SHINGLES TO HIM THOUGH. STATES HE ALSO LIFTS 40 LB BAGS OF SALT AND LOADS THE SALT INTO THE SOFTENER. IN GENERAL REPORTS HE IS PRETTY ACTIVE. HAS STEPS IN HIS HOME AND USES A [employer]ANDRAIL WHEN POSSIBLE. Disability: NO. Present symptoms: LOW BACK AND TORRES HIP PAIN - COMES AND GOES DEPENDING ON WHAT HE HAS DONE. TORRES LE WEAKNESS RIGHT > LEFT. Present since: CHRONIC. GRADUALLY WORSENED AND STARTED HAVING MORE TESTING IN THE LAST FEW MONTHS. Pain Scale: WORST 6/10, LEAST 0/10 (SOMETIMES NO PAIN FIRST THING IN THE MORNING). THERE TO SOME DEGREE MOST OF THE TIME. Currently: 02/23. Commenced as a result of: NO APPARENT REASON. Symptoms at onset: LBP. Worse: TOO MUCH WALKING. Better: SITTING DOWN. Disturbed sleep: NO. Previous history/Previous treatment: PATIENT DENIES BACK SURGERY, HIP SX AND KNEE SURGERIES. PRIOR BACK AND LEG TREATMENTS UNREMARKABLE. NO INJECTIONS. Treatment this episode: CONSULT WITH DR. BUTLER. REFERRAL TO PT. NO MEDICATION PRESCRIBED. Coughing/sneezing/straining: NEGATIVE. Gait: TIME AND DISTANCE LIMITED DUE TO LBP, TORRES HIP PAIN AND TORRES LE WEAKNESS R>L. Difficulty initiating urination: PATIENT REPORTS URGENCY. WEARS A PAD FOR SOME URINARY INCONTINENCE BUT DENIES BOWEL INCONTINENCE. Accidents: FALL 2020 - EPISODE OF DIZZINESS. GOT BETTER ON ITS OWN. HURT HIS HEAD BUT REPORTS EVERYTHING CHECKED OUT OK AND IT HASN'T HAPPENED AGAIN. Unexplained weight loss: NO. Imaging: PATIENT HAS HAD RECENT EXTENSIVE IMAGING. SEE DR. BRYAN REPORTS IN [facility] [place] EMR AND OTHER [facility] [place] EMR REPORTS. PMH/Recent major surgery: (FOUND IN RECENT EMR REPORT FROM DR. BUTLER): Medical History (Updated 04/30/21 @ 21:[address] Matias Butler MD). Atherosclerosis of [place] coronary artery of [place] heart without angina pectoris. Back problem. Diabetes. GERD (gastroesophageal reflux disease). Hearing problem. Hx of cataract. Mixed hyperlipidemia. Non-ischemic cardiomyopathy. Peripheral vascular disease. TIA (transient ischemic attack). Valvular heart disease. Surgical History . Hx of CABG (~07/29/09) - Objective Sitting/Standing Posture: POOR. REDUCED LUMBAR LORDOSIS. NO RELEVENT LATERAL SHIFT BUT RIGHT ILIAC CREST LOWER THAN LEFT AT LEAST PARTIALLY DUE TO STANDING ON RIGHT BENT KNEE. Active Correction of posture: NE. PATIENT ONLY PARTIALLY ABLE TO CORRECT. Other Observations: THIS PATIENT AMBULATES INDEP'LY INTO PT WITHOUT ANY ASSISTIVE DEVICES OR LOB BUT WITH RIGHT LE SPASTIC TYPE PATTERN AND KNEE FLEXION DURING STANCE PHASE. PATIENT IS ABLE TO INDEP'LY TRANSFER FROM SIT TO STAND WITHOUT UE ASSIST BUT THIS IS DIFFICULT AND SAFER WITH UE ASSIST. Motor deficit: TORRES LE STRENGTH IS GROSSLY 5/5 WITH MMT'ING EXCEPT RIGHT HIP FLEXION 4+/5 AND RIGHT LE HYPERTONIA. Sensory deficit: TORRES LE LIGHT TOUCH SENSATION IS GROSSLY INTACT AND SYMMETRICAL. ROM deficit: MINUS 30 DEG EXTENSION OF RIGHT KNEE IN SITTING. RIGHT KNEE ROM IN SUPINE WITH A HEEL SLIDE = -21 DEG EXT TO 119 DEG FLEXION. TIGHT TORRES HIP FLEXORS, HS'S AND GASTROC SOLEUS COMPLEX'S (RIGHT > LEFT). Dural Signs: POSITIVE RIGHT LE. Lumbar mvmt loss: flex - MOD. ext - MICHAEL. R SG - MOD. L SG - MOD. PATIENT DENIES INCREASED BACK OR HIP PAIN WITH LUMBAR ROM TESTING ALL PLANES. Core strength: FAIR. Palpation: NO ACUTE LUMBAR OR HIP TENDERNESS WITH PALPATION. TUG TEST: 17.92 SEC (MILD RIGHT FOOT DROP). SIT TO STAND TEST IN 30 SEC - 6 REPETITIONS. TESTED WITH TORRES UE ASSIST. - Balance/Special Test Scores Oswestry Low Back Score: 6 - Goals Goal 1:: DECREASE C/O LOW BACK AND HIP PAIN. Goal Time Frame: 4-6 Weeks Goal 2:: PATIENT WILL COMPLETE 10 SIT TO STANDS IN 30 SECS TO DEMONSTRATE IMPROVED FUNCTIONAL STRENGTH Goal Time Frame: 4-6 Weeks Goal 3:: PATIENT WILL COMPLETE TUG IN <15 SECS TO DEMONSTRATE IMPROVED GAIT STABILITY Goal Time Frame: 4-6 Weeks Goal 4:: PATIENT WILL BE INDEP WITH A HEP FOR CONTINUED IMRPVOVEMENT ONCE FORMAL PHYSICAL THERAPY CONCLUDES. Goal Time Frame: 4-6 Weeks - Anticipated Interventions Patient/Client Instruction: Educate patient on: Condition, Plan of Care, Risk Factors For the Purpose of:: To improve self management Therapeutic Exercise to Include: Strength training, Balance training, Body mechanics, Postural training, Flexibilty training, Gait and locomotor training, Neuromotor development, Dynamic Lumbar Stabilization For the Purpose of:: To decrease pain, To increase ROM, To improve muscle performance and motor function, To increase tolerance to activity/condition/position, To improve ability of physical actions for home/community/work/leisure, To improve gait and locomotor functions Thank you for the opportunity to evaluate your patient. For Medicare and Medicare HMO plans, please review the plan of care and approve it. It will need to be FAXED BACK to us at [phone] for Medicare purposes. For Medicare only, by signing this I certify the plan of care. Please let me know if there are questions or concerns regarding this plan of care. Physician Signature: Date:
== END 2021-05-27 19:00 | disposition home or self-care (01) ==
LOC: PT 13:00
PROVIDERS: PCP Internal Medicine; Referring Provider Psychiatry & Neurology Neurology; Visit Provider Psychiatry & Neurology Neurology
DX: G95.9 Disease of spinal cord, unspecified (principal); R53.1 Weakness
CPT/HCPCS: 97110; 97162; 97164

== ENCOUNTER → 2021-06-15 | Outpatient (CLI) | payer MEDICARE, OTHER, SELFPAY ==
--- NOTE | 2021-06-15 08:58 | NEURO ---
NCS and/or EMG Patient Report Ordering Doctor: Matias Acosta DATE OF SERVICE: 06/15/21 Indication: Right lower extremity weakness, especially notable when trying to rise from the ground. Chronic localized back pain, but no radicular symptoms. No associated sensory disturbance. Patient takes warfarin. Findings: Nerve conduction studies were performed in the right and left lower extremities. The right peroneal motor study recording the extensor digitorum brevis showed a markedly reduced amplitude, normal distal latency and borderline conduction velocity. No conduction block or focal slowing was present across the fibular neck. The right peroneal motor study recording the tibialis anterior showed a normal amplitude, normal distal latency and normal conduction velocity. No conduction block or focal slowing was present across the fibular neck. The right tibial motor study recording the abductor hallucis brevis showed a normal amplitude, normal distal latency and normal conduction velocity. Right sural sensory response showed a normal amplitude and conduction velocity. Right superficial peroneal sensory response showed a borderline amplitude and conduction velocity. The left peroneal motor study recording the extensor digitorum brevis was absent. The left peroneal motor study recording the tibialis anterior showed a normal amplitude, normal distal latency and normal conduction velocity. No conduction block or focal slowing was present across the fibular neck. The left tibial motor study recording the abductor hallucis brevis showed a normal amplitude, normal distal latency and normal conduction velocity. Left sural sensory response showed a normal amplitude and conduction velocity. Left superficial peroneal sensory response was absent. Needle EMG of the right and left lower extremity muscles was performed. Certain muscles, including the lumbar paraspinal muscles, were not sampled due to the patient being on therapeutic anticoagulation. No denervation was present in any muscle. On the right, motor units in the extensor hallucis longus were large amplitude, long duration and polyphasic with slightly reduced recruitment. Motor units in the tensor facia latae were slightly large amplitude and long duration with normal recruitment. All other motor unit morphology, activation and recruitment patterns were normal for age. On the left, all motor unit morphology, activation and recruitment patterns were normal for age. Impression: This is an abnormal, but limited (anticoagulation) study. There is electrophysiologic evidence of a mild, chronic, right L5 radiculopathy. There is no active denervation to suggest ongoing motor axon loss. The absent superficial peroneal response on the left may be the result of age alone. However, a superimposed, mild, non-localizing, left peroneal neuropathy cannot be entirely excluded. If desired, a neuromuscular ultrasound could be considered to further evaluate this incidental finding. Tej Michelle D.O. Multi Select Codes Neurology Neurology Interp Codes: 29560-97 Musc test done w/n test comp (interp) (Qty:2) and 08803-41 Nrv cndj test 9-10 studies (interp)
== END | disposition home or self-care (01) ==
LOC: PSN 06:41
PROVIDERS: PCP Internal Medicine; Referring Provider Psychiatry & Neurology Neurology; Visit Provider Psychiatry & Neurology Neurology
DX: R53.1 Weakness (principal); G12.20 Motor neuron disease, unspecified; G95.9 Disease of spinal cord, unspecified
CPT/HCPCS: 95885; 95886; 95911

== ENCOUNTER → 2021-08-13 | Outpatient (CLI) | payer MEDICARE, OTHER, SELFPAY ==
[2021-08-13 17:52] LABS: Hematocrit 39.4 % (40-54); Hemoglobin 12.3 g/dL (13.0-16.5); Mean Corp Hgb Conc 31.2 g/dL (32-36); Mean Corpuscular Hgb 27.2 pg (27.0-32.0); Platelet Count 290 K/mm3 (150-450); RBC Distribution Width SD 41.1 fl (35.1-43.9); Red Blood Count 4.53 M/mm3 (4.6-6.2); White Blood Count 8.8 K/mm3 (4.4-11.0)
[2021-08-13 18:05] LABS: Erythrocyte Sedimentation Rate 30 mm/hr (0-20)
[2021-08-13 18:13] LABS: PTHIN 83.9 pg/mL (18.4-80.1)
[2021-08-13 18:39] LABS: AST(SGOT) 21 U/L (15-37); Alanine Aminotransfer ALT/SGPT 20 U/L (16-61); Alkaline Phosphatase 74 U/L (45-117); Anion Gap 6 (5-15); BUN 23 mg/dL (7-18); CPK Total, Creatine Kinase 83 U/L (39-308); Calcium,Total 9.4 mg/dL (8.5-10.1); Chloride 107 mmol/L (98-107); EST Glomerular Filtration Rate 75 mL/min (>60); Est Glom Filt Rate - Afr Amer 91 mL/min (>60); Glucose 93 mg/dL (74-106); Potassium 3.8 mmol/L (3.5-5.1); Sodium Level 140 mmol/L (136-145); Thyroid Stim Hormone (TSH) 1.75 uIU/mL (0.358-3.74)
[2021-08-13 18:40] LABS: Vitamin B12 > 2000 pg/mL (211-911)
[2021-08-19 11:18] LABS: ANTINUCLEAR ANTIBODIES DIRECT Negative (Negative); Vitamin D 1,25-Dihydroxy 43.2 pg/mL (24.8-81.5)
[2021-08-21 15:10] LABS: Free Kappa Light Chains 38.6 mg/L (3.3-19.4); Free Lambda Light Chains 25.5 mg/L (5.7-26.3); Vitamin B1, Thiamine 126.8 nmol/L (66.5-200.0)
[2021-08-21 16:04] LABS: Arsenic 7245 1 ug/L (0-9); Lead, Blood 2 ug/dL (0-4); Mercury, Blood 85324 < 1.0 ug/L (0.0-14.9); Myoglobin, Serum 39 ng/mL (28-72)
[2021-08-21 21:37] LABS: HLA B27 Negative (.)
== END | disposition home or self-care (01) ==
LOC: MTLAB 16:45
PROVIDERS: PCP Internal Medicine; Referring Provider Psychiatry & Neurology Neurology; Visit Provider Psychiatry & Neurology Neurology
DX: R53.1 Weakness (principal); G95.9 Disease of spinal cord, unspecified; E11.9 Type 2 diabetes mellitus without complications; G57.90 Unspecified mononeuropathy of unspecified lower limb; E78.2 Mixed hyperlipidemia
CPT/HCPCS: 36415; 80053; 81374; 82175; 82550; 82607; 82652; 82746; 83655; 83825; 83874; 83883; 83970; 84425; 84443; 85027; 85652; 86038; 86225; 86235

== ENCOUNTER → 2021-12-17 | Outpatient (CLI) | payer MEDICARE, OTHER, SELFPAY ==
[2021-12-21 14:08] LABS: Albumin 3.8 g/dL (2.9-4.4); Alpha-1-Globulins 0.3 g/dL (0.0-0.4); Alpha-2-Globulins 0.9 g/dL (0.4-1.0); Gamma Globulin 1.1 g/dL (0.4-1.8); Immunoglobulin A 377 mg/dL (61-437); Immunoglobulin G 1071 mg/dL (603-1613); Immunoglobulin M 143 mg/dL (15-143); PROEL- TOTAL PROTEIN 7.5 g/dL (6.0-8.5)
== END | disposition home or self-care (01) ==
LOC: MTLAB 16:29
PROVIDERS: PCP Internal Medicine; Referring Provider Psychiatry & Neurology Neurology; Visit Provider Psychiatry & Neurology Neurology
DX: G57.90 Unspecified mononeuropathy of unspecified lower limb (principal)
CPT/HCPCS: 36415; 82784; 84165; 86334

== ENCOUNTER → 2021-12-18 | Outpatient (CLI) | payer MEDICARE, OTHER, SELFPAY | END | disposition home or self-care (01) | LOC: MTLAB 13:42 | PROVIDERS: PCP Internal Medicine; Referring Provider Psychiatry & Neurology Neurology; Visit Provider Psychiatry & Neurology Neurology | DX: G57.90 Unspecified mononeuropathy of unspecified lower limb (principal) | CPT/HCPCS: 86335 ==

== ENCOUNTER → 2022-06-21 | Outpatient (CLI) | payer MEDICARE, OTHER, SELFPAY ==
--- NOTE | 2022-06-21 12:52 | CDU_ITS ---
Reason For Study: CAROTID STENOSIS Rt. Velocities/BP Lt. Velocities/BP Prox CCA 89.4/8.0 cm/sec. Prox CCA 46.2/5.6 cm/sec. Mid CCA 57.0/10.9 cm/sec. Mid CCA 61.1/9.2 cm/sec. Dist CCA 60.3/8.7 cm/sec. Dist CCA 67.1/8.8 cm/sec. Prox ICA 60.3/8.7 cm/sec. Prox ICA 54.6/13.6 cm/sec. Mid ICA 66.9/18.6 cm/sec. Mid ICA 122.4/21.7 cm/sec. Dist ICA 74.6/18.6 cm/sec. Dist ICA 70.6/17.9 cm/sec. Rt. ICA/CCA = 74.6/57.0=1.3. Lt. ICA/CCA = 122.4/61.1=2.0. Prox ECA 76.8/5.4 cm/sec. Prox ECA 79.7/9.0 cm/sec. Rt. Vert. 33.4/9.2 cm/sec. Lt. Vert. 62.5/10.1 cm/sec. Right Extracranial There is homogeneous, smooth atherosclerotic plaque noted in the right common carotid artery. There is heterogeneous, irregular atherosclerotic plaque noted in the right internal carotid artery. The tortuous nature of the right internal carotid artery may result in flow velocities overestimating the degree of stenosis. There is intimal thickening but no significant atherosclerotic plaque noted in the right external carotid artery. Antegrade flow is noted in the right vertebral artery. Left Extracranial There is heterogeneous, smooth atherosclerotic plaque noted in the left common carotid artery. There is heterogeneous, irregular atherosclerotic plaque noted in the left internal carotid artery. The tortuous nature of the left internal carotid artery may result in flow velocities overestimating the degree of stenosis. There is intimal thickening but no significant atherosclerotic plaque noted in the left external carotid artery. Antegrade flow is noted in the left vertebral artery. Procedure Carotid Duplex 49140. This is a Carotid Duplex examination using B-mode, color flow and specral Doppler. Exam performed in department. VL/Carotid Duplex Ultrasound Interpretation Summary Mild (<50%) stenosis right extracranial internal carotid. Mild (<50%) stenosis left extracranial internal carotid. Patent and antegrade vertebrals bilaterally. Ordering Physician: Arlin Tapia Referring Physician: Arlin Tapia Performed By: Trina Sifuentes RDCS, RVT
== END | disposition home or self-care (01) ==
LOC: CVS 12:50
PROVIDERS: PCP Internal Medicine; Referring Provider Internal Medicine; Visit Provider Internal Medicine
DX: I65.23 Occlusion and stenosis of bilateral carotid arteries (principal)
CPT/HCPCS: 93880

== ENCOUNTER → 2023-02-02 | Outpatient (CLI) | payer MEDICARE, OTHER, SELFPAY | END | disposition home or self-care (01) | LOC: PSN 08:58 | PROVIDERS: PCP Internal Medicine; Referring Provider Internal Medicine; Visit Provider Internal Medicine | DX: I49.3 Ventricular premature depolarization (principal) | CPT/HCPCS: 93225; 93226 ==

== ENCOUNTER → 2023-02-23 | Outpatient (CLI) | payer MEDICARE, OTHER, SELFPAY ==
--- NOTE | 2023-02-23 09:50 | ECHOD_ITS ---
Reason For Study: PREMATURE VENTRICULAR CONTRACTIONS Procedure This was a 2D Doppler, Color Flow transthoracic echocardiogram. Exam performed in department. Left Ventricle Normal LV size. The estimated ejection fraction is 50 %. Stage 1 diastolic dysfunction. No regional wall motion abnormalities noted. Right Ventricle Normal RV size. Normal systolic function. Atria The left atrium is mildly enlarged. Normal right atrium. Mitral Valve Normal mitral valve. Mild-Moderate (1-2+) mitral valve insufficiency. Tricuspid Valve Normal tricuspid valve. Mild tricuspid valve insufficiency. Aortic Valve Trisinus/trileaflet aortic valve. Mild (1+) aortic valve insufficiency. Pulmonic Valve Normal pulmonic valve. Great Vessels Mildly dilated aortic root. The pulmonary artery is normal size. Normal inferior vena cava. Pericardium/Pleural No pericardial effusion. MMode/2D Measurements & Calculations LVIDd: 5.9 cm IVSd: 0.95 cm LVOT diam: 2.1 cm LVIDs: 4.1 cm LVPWd: 0.98 cm LVOT area: 3.6 cm2 RVDd: 3.4 cm FS: 29.6 % Ao root diam: 3.8 cm LAV(MOD-bp): 81.1 ml LVAd ap4: 26.3 cm2 LAV(MOD-bp) Indexed: 48.3 ml/m2 LVLd ap4: 6.9 cm LAV(MOD-sp2): 83.5 ml EDV(MOD-sp4): 79.2 ml LAV(MOD-sp4): 77.7 ml EDV(sp4-el): 85.3 ml LVAs ap4: 17.6 cm2 LVLs ap4: 5.9 cm ESV(MOD-sp4): 43.7 ml ESV(sp4-el): 44.3 ml EF(MOD-sp4): 44.8 % EF(sp4-el): 48.1 % LVAd ap2: 28.1 cm2 SV(MOD-sp4): 35.5 ml SV(MOD-sp2): 45.0 ml LVLd ap2: 7.5 cm EDV(MOD-sp2): 84.8 ml EDV(sp2-el): 89.3 ml LVAs ap2: 17.6 cm2 LVLs ap2: 6.3 cm ESV(MOD-sp2): 39.7 ml ESV(sp2-el): 41.8 ml EF(MOD-sp2): 53.1 % SV(sp4-el): 41.0 ml LA dimension(2D): 5.2 cm LA A4 area: 24.2 cm2 RA A4 area: 15.3 cm2 TAPSE: 1.6 cm Time Measurements MV dec time: 0.16 sec Doppler Measurements & Calculations MV E max fermin: 57.3 cm/sec Lat Peak E' Fermin: 7.6 cm/sec Med Peak E' Fermin: 4.8 cm/sec MV A max fermin: 93.2 cm/sec E/E' lat: 7.6 E/E' med: 12.0 MV E/A: 0.61 Ao V2 max: 146.2 cm/sec AI max fermin: 427.4 cm/sec MV dec slope: 355.9 cm/sec2 Ao max P.6 mmHg AI max P.1 mmHg Ao V2 mean: 95.4 cm/sec Ao mean P.2 mmHg AI dec slope: 279.4 cm/sec2 Ao V2 VTI: 34.5 cm AI P1/2t: 448.0 msec AV (velocity ratio): 0.51 RACHEL(I,D): 1.8 cm2 RACHEL(V,D): 1.8 cm2 LV V1 max: 72.4 cm/sec SV(LVOT): 63.4 ml PA V2 max: 118.3 cm/sec LV V1 max P.1 mmHg PA max PG (full): 4.4 mmHg LV V1 mean P.0 mmHg LV V1 mean: 46.2 cm/sec LV V1 VTI: 17.7 cm PI end-d fermin: 78.3 cm/sec TR max fermin: 196.0 cm/sec TR max P.4 mmHg ECHO/Echo Complete Interpretation Summary Normal LV size. The estimated ejection fraction is 50 %. The left atrium is mildly enlarged. Stage 1 diastolic dysfunction. Mild (1+) aortic valve insufficiency. Ordering Physician: Arlin Tapia Referring Physician: Arlin Tapia Performed By: Emerita Kovacs RDCS
== END | disposition home or self-care (01) ==
LOC: CVS 09:48
PROVIDERS: PCP Internal Medicine; Referring Provider Internal Medicine; Visit Provider Internal Medicine
DX: I49.3 Ventricular premature depolarization (principal)
CPT/HCPCS: 93306

== ENCOUNTER → 2023-03-21 | Outpatient (CLI) | payer MEDICARE, OTHER, SELFPAY ==
--- NOTE | 2023-03-21 15:34 | MRI_ITS ---
STUDY: MRI THORACIC SPINE WITHOUT CONTRAST REASON FOR EXAM: Male, 87 years old. gait d/o; R leg hypertonia; eval for myelopathy TECHNIQUE: Standardized fat and water weighted pulse sequences were obtained in the sagittal and axial planes. COMPARISON: None. FINDINGS: Normal kyphosis of the thoracic spine. There is no substantial scoliosis. No evidence for acute fracture or subluxation. There are hemangiomata within the T3 and T6 vertebral bodies. There is multilevel disc space narrowing and disc degeneration. There is no significant disc protrusion central canal stenosis or cord compression. . Normal intervertebral neural foramina at the corresponding levels. Normal visualized thoracic cord. Normal conus medullaris that terminates at L1 The soft tissue structures are unremarkable. MRI/Spine Thoracic (Routine) IMPRESSION: No evidence for acute fracture or other significant bone pathology.. Mild spondylosis and multilevel disc degeneration No focal disc protrusion spinal stenosis or cord compression. No focal cord lesions identified Electronically Signed: Tamir Buenrostro MD at 19:56 EST Reading Location ID and State: [facility] / [place] Tel , Service support ,
== END | disposition home or self-care (01) ==
LOC: MRI 15:29
PROVIDERS: PCP Internal Medicine; Referring Provider Psychiatry & Neurology Neurology; Visit Provider Psychiatry & Neurology Neurology
DX: R26.9 Unspecified abnormalities of gait and mobility (principal)
CPT/HCPCS: 72146

== ENCOUNTER → 2023-08-12 | Outpatient (CLI) | payer MEDICARE, OTHER, SELFPAY ==
--- NOTE | 2023-08-12 13:42 | CDU_ITS ---
Reason For Study: Bilateral Carotid Stenosis Rt. Velocities/BP Lt. Velocities/BP Prox CCA 78.4/8.9 cm/sec. Prox CCA 55.7/10.4 cm/sec. Mid CCA 91.1/8.9 cm/sec. Mid CCA 54.0/11.3 cm/sec. Dist CCA 44.1/11.3 cm/sec. Dist CCA 52.2/12.1 cm/sec. Prox ICA 46.8/9.5 cm/sec. Prox ICA 54.0/18.2 cm/sec. Mid ICA 75.4/18.2 cm/sec. Mid ICA 122.2/32.7 cm/sec. Dist ICA 79.8/22.6 cm/sec. Dist ICA 92.3/20.5 cm/sec. Rt. ICA/CCA = 0.9. Lt. ICA/CCA = 2.3. Prox ECA 72.4/7.2 cm/sec. Prox ECA 65.1/7.5 cm/sec. Rt. Vert. 23.4/9.9 cm/sec. Lt. Vert. 61.8/15.6 cm/sec. Right Extracranial There is homogeneous, smooth atherosclerotic plaque noted in the right common carotid artery. There is heterogeneous, irregular atherosclerotic plaque noted in the right internal carotid artery. There is homogeneous, smooth atherosclerotic plaque noted in the right external carotid artery. Antegrade flow is noted in the right vertebral artery. Left Extracranial There is homogeneous, smooth atherosclerotic plaque noted in the left common carotid artery. There is heterogeneous, irregular atherosclerotic plaque noted in the left internal carotid artery. There is heterogeneous, irregular atherosclerotic plaque noted in the left external carotid artery. Antegrade flow is noted in the left vertebral artery. Procedure Carotid Duplex [id number]. This is a Carotid Duplex examination using B-mode, color flow and specral Doppler. The exam was diagnostic. Exam performed in department. VL/Carotid Duplex Ultrasound Interpretation Summary Minimal plaque at the proximal right internal carotid artery with less than 50% stenosis Less than 50% stenosis right external carotid artery Irregular plaque at the proximal left internal carotid artery with less than 50 % stenosis Less than 50% stenosis left external carotid artery Patent and antegrade vertebral arteries bilaterally No progression of disease from a previous examination of June 21, 2022 Ordering Physician: Arlin Tapia Referring Physician: Arlin Tapia Performed By: Ilia Ness RVT
== END | disposition home or self-care (01) ==
LOC: CVS 13:41
PROVIDERS: PCP Internal Medicine; Referring Provider Internal Medicine; Visit Provider Internal Medicine
DX: I65.23 Occlusion and stenosis of bilateral carotid arteries (principal)
CPT/HCPCS: 93880

== ENCOUNTER 2023-12-07 08:32 | Day surgery (SDC) | payer MEDICARE, OTHER, SELFPAY ==
[2023-12-07] VITALS (16 sets, daily range): BP systolic 105–144; BP diastolic 53–64; PULSE 48–87; RESP 14–18; TEMP 36.4–38.4; O2SAT 91–100; BMI 22.6
[2023-12-07] MEDS: Lactated Ringers 1,000 ML 15 ML IV (09:14)
--- NOTE | 2023-12-07 09:35 | PCM.PRE.AN2 ---
ASA Classification* ASA Classification ASA Classification: 3 Assessment & Plan Anesthesia* Anesthesia Assessment Anesthesia Assessment: Discussed sedation and/or anesthesia options, risks, benefits, and alternatives with patient/parents/legal guardian/POA. Questions invited. The patient/parents/legal guardian/POA seems to understand and agrees to proceed with anesthesia plan. Reviewed the physical assessment, medical history, allergy history and patient home medications list prior to surgery/procedure/anesthetic and documented any changes. Performed airway and anesthesia risk assessments. Anesthesia Type Anesthesia Type: General History Source History Obtained from:: Patient and Chart Anesthesia Focused Assessment* Temperature: 97.9 F Pulse Rate: 57 Blood Pressure: 115/62 Respiratory Rate: 18 Pulse Ox: 99 Oxygen Delivery Method: Room Air Airway Assessment Mouth opens: >3 cm Mallampati Score: II Teeth Condition: Dentures (Patient has full top and bottom dentures. They are out.) Neck Range of motion (ROM): Limited ROM (Somewhat decreased extension) Focused Labs Anesthesia Preop lab: CBC WBC 8.8 K/mm3 (4.4-11.0) 08/13/21 16:50 RBC 4.53 M/mm3 (4.6-6.2) L 08/13/21 16:50 Hgb 12.3 g/dL (13.0-16.5) L 08/13/21 16:50 Hct 39.4 % (40-54) L 08/13/21 16:50 Plt Count 290 K/mm3 (150-450) 08/13/21 16:50 CHEMISTRY Potassium 3.8 mmol/L (3.5-5.1) 08/13/21 16:50 Sodium 140 mmol/L (136-145) 08/13/21 16:50 BUN 23 mg/dL (7-18) H 08/13/21 16:50 Creatinine 1.00 mg/dL (0.70-1.30) 08/13/21 16:50 Glucose 93 mg/dL (74-106) 08/13/21 16:50 TSH 1.75 uIU/mL (0.358-3.74) 08/13/21 16:50 COAG PT 26.0 SECONDS (11.7-14.9) H 06/04/16 00:30 Pre-Assessment Diagnosis/Proposed Procedure Planned Operative Procedure(s): TRANS URETHERAL RESECTION OF PROSTATE Anesthesia History 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 When Was Last Pacemaker Check QUESTION #4 FULL TEXT: You/Your Family Experience fever (hyperthermia) with Anesthesia Last Oral Intake Last Oral intake: Last Oral Intake NPO since 21:00 12/07/23 08:53 Meds taken in AM with sips of Yes 12/07/23 08:53 water? Meds patient instructed to see medlist 12/07/23 08:53 take am of surgery PONV PONV - wire weaving loom setter: PONV - wire weaving loom setter Female No 10/21/23 09:02 HX of Motion Sickness No 10/21/23 09:02 HX of N/V After Surgery No 10/21/23 09:02 Non-Smoker Yes 10/21/23 09:02 Duration of Surgery greater Yes 10/21/23 09:02 than 60 minutes Number of Risk Factors 2 10/21/23 09:02 PONV Score Moderate Risk 10/21/23 09:02 Height & Weight Height & Weight: Anesthesia: Height & Weight Height 5 ft 4 in 12/07/23 08:53 Weight: 60 kg 12/07/23 08:53 Body Mass Index (BMI) 22.6 12/07/23 08:53 Respiratory Assessment Respiratory Assessment - wire weaving loom setter: Respiratory Tract Infection Hx - wire weaving loom setter Hx Respiratory Tract Infection No 10/21/23 09:02 STOP Sleep Apnea STOP Sleep Apnea - wire weaving loom setter: STOP Sleep Apnea - wire weaving loom setter Hx Hypertension Yes: CONTROLLED WITH MEDS 10/21/23 09:02 Hx Sleep Apnea No 10/21/23 09:02 CPAP BIPAP Do you snore loudly (louder No 10/21/23 09:02 than talking or can be heard Do you often feel tired/ No 10/21/23 09:02 fatigued/ sleepy during daytime? Has anyone observed you stop No 10/21/23 09:02 breathing during sleep? STOP Results Negative 10/21/23 09:02 QUESTION #5 FULL TEXT : Do you snore loudly (louder than talking or can be heard through closed doors)? 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 Specify any problems Hx of Preganancy in last 3 N/A 10/21/23 09:02 Months Nurse Filling Out Transfusion [email or web address] 10/21/23 09:02 & Questions: Date: 10/21/23 10/21/23 09:02 Time: 09:10/21/23 09:02 Patient unable to answer at this time (ie. confused, unrespo /Reproduction History /Reproductive History - wire weaving loom setter: /Reproductive Hx- wire weaving loom setter Hx Now Gestational Age (in weeks): EDC: Hx Hx Para Hx Section SAB Active Medications Active Medications: Current Medications Generic Name Dose Route Start Last Admin Trade Name Freq PRN Reason Stop Dose Admin Cefazolin Sodium 2 gm/ N/A 20 mls @ 400 mls/hr 12/07/23 10:40 IV 12/07/23 10:42 PREOP ONE Lactated Ringer's 1,000 mls @ 15 mls/hr 12/07/23 08:45 12/07/23 09:14 IV 12/12/23 22:04 15 mls/hr .Q48H XIANG Administration Protocol [facility] Medical History Wears hearing aid Wears dentures Wears glasses Knee pain Former smoker History of echocardiogram History of stress test Cardiology follow-up encounter GERD (gastroesophageal reflux disease) Hearing problem Diabetes Hx of cataract Back problem Mixed hyperlipidemia Peripheral vascular disease TIA (transient ischemic attack) 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 Non-ischemic cardiomyopathy Home Medications ?Medication ?Instructions ?Recorded ?Last Taken ?Type simvastatin 10 mg tablet 10 mg PO DAILY 06/04/16 12/06/23 History amlodipine 5 mg tablet (Norvasc) 5 mg PO DAILY 03/01/17 12/07/23 History carvedilol 12.5 mg tablet (Coreg) 12.5 mg PO BID 03/01/17 12/07/23 History cholecalciferol (vitamin D3) 50 2,000 unit PO QDAY 03/01/17 12/06/23 History mcg (2,000 unit) capsule omeprazole 20 mg capsule,delayed 20 mg PO QDAY 03/01/17 12/07/23 History release tamsulosin 0.4 mg capsule (Flomax) 0.4 mg PO QDAY 03/01/17 12/06/23 History nitroglycerin 0.4 mg sublingual 0.4 mg sublingual Q5-15M PRN 03/18/22 Unknown Rx tablet Cardiac/Chest Pain #25 tabs finasteride 5 mg tablet 5 mg PO DAILY 10/13/23 12/06/23 History vitamins A,C,T-rpwf-sjmapn 4,296 1 cap PO BID 10/13/23 12/06/23 History mcg-226 mg-90 mg capsule (PreserVision AREDS) warfarin 1 mg tablet 1 mg PO .COMPLEX 10/13/23 12/02/23 History Allergy/AdvReac Type Severity Reaction Status Date / Time No Known Allergies Allergy Verified 12/07/23 08:50 Family History Other Cancer Unknown d/t adoption Surgical History Hx of CABG (~07/29/09) Social History Smoking Status: Former smoker second hand exposure: No alcohol intake: never substance use type: does not use caffeine: Yes Type: coffee what type of physical activity do you participate in: none jordon/jehovah's witness: Caodaism seatbelt use: always do you feel safe at home: Yes Review of Systems (Anesthesia) ROS Narrative System reviewed and no additional complaints, except as documented.
--- NOTE | 2023-12-07 09:50 | HP.PCM_ITS ---
HPI - General General Date of Admission: 12/07/23 Date of Service: 12/07/23 Chief Complaint: BPH with obstruction HPI Narrative JM HARE, is a 88 M who presents for a transurethral resection of the prostate for large obstructing prostate [facility] Medical History Wears hearing aid Wears dentures Wears glasses Knee pain Former smoker History of echocardiogram History of stress test Cardiology follow-up encounter GERD (gastroesophageal reflux disease) Hearing problem Diabetes Hx of cataract Back problem Mixed hyperlipidemia Peripheral vascular disease TIA (transient ischemic attack) 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 Non-ischemic cardiomyopathy Home Medications ?Medication ?Instructions ?Recorded ?Last Taken ?Type simvastatin 10 mg tablet 10 mg PO DAILY 06/04/16 12/06/23 History amlodipine 5 mg tablet (Norvasc) 5 mg PO DAILY 03/01/17 12/07/23 History carvedilol 12.5 mg tablet (Coreg) 12.5 mg PO BID 03/01/17 12/07/23 History cholecalciferol (vitamin D3) 50 2,000 unit PO QDAY 03/01/17 12/06/23 History mcg (2,000 unit) capsule omeprazole 20 mg capsule,delayed 20 mg PO QDAY 03/01/17 12/07/23 History release tamsulosin 0.4 mg capsule (Flomax) 0.4 mg PO QDAY 03/01/17 12/06/23 History nitroglycerin 0.4 mg sublingual 0.4 mg sublingual Q5-15M PRN 03/18/22 Unknown Rx tablet Cardiac/Chest Pain #25 tabs finasteride 5 mg tablet 5 mg PO DAILY 10/13/23 12/06/23 History vitamins A,C,L-qcqn-veeesw 4,296 1 cap PO BID 10/13/23 12/06/23 History mcg-226 mg-90 mg capsule (PreserVision AREDS) warfarin 1 mg tablet 1 mg PO .COMPLEX 10/13/23 12/02/23 History Allergy/AdvReac Type Severity Reaction Status Date / Time No Known Allergies Allergy Verified 12/07/23 08:50 Family History Other Cancer Unknown d/t adoption Surgical History Hx of CABG (~07/29/09) Social History Smoking Status: Former smoker second hand exposure: No alcohol intake: never substance use type: does not use caffeine: Yes Type: coffee what type of physical activity do you participate in: none jordon/church: Evangelical seatbelt use: always do you feel safe at home: Yes Vital Signs Vital Signs Vital Signs: 12/07/23 08:53 12/07/23 08:53 12/07/23 09:46 Temperature 97.9 F 97.9 F Temperature Source Temporal Pulse Rate 57 L 57 L Respiratory Rate 18 18 Respiratory Pattern Normal Blood Pressure 115/62 115/62 Blood Pressure Mean 79 Blood Pressure Source Monitor Blood Pressure Position Sitting Blood Pressure Location Left Arm Pulse Ox 99 99 Oxygen Delivery Method Room Air Room Air Weight Weight: 60 kg Body Mass Index (BMI) 22.6
[2023-12-07] MEDS: Cefazolin 2 GM in Syringe IV (10:18)
--- NOTE | 2023-12-07 10:40 | PROS_PTH ---
PATHOLOGY RESULTS PATIENT: JM [place] [facility] [place][id number] AGE/SX: 88/M ROOM: RE12/07/[address]: Dr. Juan Cortes MD : [id number] BED: DIS: 12/08/2023 SPEC #: [id number] RECD: 12/07/23 13:22 STATUS: HARMONY RERavinder #: [id number] NERY: 12/07/23 10:[address]: Juan Cortes DEPT: SURGICAL PATHOLOGY RECD BY: Jalil Wagner ENTERED: 12/07/23 13:46 SP TYPE: TURP OTHR DR: Dr. Arlin Tapia, DO Tissues: Prostate, NOS Procedures: Surgery Specimen Level IV HEADER OPERATION: Transurethral resection prostate PRE-OP DIAGNOSIS: Benign prostatic hyperplasia with lower urinary tract symptoms, urge incontinence, feeling incomplete bladder emptying TISSUE SUBMITTED: Prostate chips MICROSCOPIC DIAGNOSIS Prostate chips, transurethral resection: Benign prostatic hyperplasia, glandular and stromal type. 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 Fragments of stone (gross only). 12/08/2023 MICROSCOPIC DESCRIPTION Slides are reviewed. GROSS DESCRIPTION Received is one container labeled with the patient's name and designated prostate tissue. The specimen consists of multiple irregular fragments of pink-castro, rubbery, soft tissue that in aggregate weigh 16.1 gm and measure in aggregate 6.5 x 6.0 x 2.0 cm. A few fragments of castro-brown stones are also noted measuring 0.1cm in greatest dimension. Adjunct Philosophy Faculty tissue is submitted in ten cassettes. 12/07/2023 TC:5 CPT: 23301
--- NOTE | 2023-12-07 11:46 | DCINST_ITS ---
Discharge Instructions Diet Discharge Diet: No restrictions Activity Discharge Activity: Return to Normal Activity and May Not Drive (while taking narcotic pain medications.) Dressing / Incision Call your doctor if you observe: Fever of 101 or Higher Follow Up Care Please Follow Up With: Juan Cortes MD When: Call [phone] for an appointment Test Results: Test results from this visit will be discussed in further detail at your follow- up appointment, if applicable. Discharge Plan Admission Primary Reason for Your Visit: turp Attending Provider: Juan Cortes Primary Care Provider: Arlin Tapia Instructions Patient Instructions: TURP, TURP Home Recovery, TURP Hospital Recovery Print Language: [place] Citizen Discharge Orders/Prescriptions Prescriptions: Continued carvedilol [Coreg] 12.5 mg tablet 12.5 mg PO BID amlodipine [Norvasc] 5 mg tablet 5 mg PO DAILY omeprazole 20 mg capsule,delayed release(DR/EC) 20 mg PO QDAY tamsulosin [Flomax] 0.4 mg capsule,extended release 24hr 0.4 mg PO QDAY cholecalciferol (vitamin D3) 2,000 unit capsule 2,000 unit PO QDAY nitroglycerin 0.4 mg tablet, sublingual 0.4 mg SUBLINGUAL Q5-15M PRN (Reason: Cardiac/Chest Pain) Qty: 25 3RF finasteride 5 mg tablet 5 mg PO DAILY PreserVision AREDS 4,296 mcg-226 mg-90 mg capsule 1 cap PO BID simvastatin 10 MG tablet 10 mg PO DAILY Held warfarin 1 mg tablet 1 mg PO .COMPLEX Hold Instructions: Resume on 12/21/23. Rx Instructions: 1 mg orally 1mg alternating QOD with 1.5mg; Referrals / Follow Up: Arlin Tapia DO [Primary Care Provider] - Juan Cortes MD [Med Staff - Active Staff] - Disposition Disposition (needs filled in before D/C Order can be placed): Home, Self Care
--- NOTE | 2023-12-07 11:46 | PCM.OPRPT ---
Operative Report (Standard) Operative Information Surgery/Procedure Performed: Transurethral section of prostate Surgeon: Juan Cortes Date of Procedure: 12/07/23 Procedure Start Time: 10:18 Procedure Stop Time: 11:47 Pre-Operative Diagnosis: BPH with obstruction Post-Operative Diagnosis: Same Select all DRAINS/GRAFTS/IMPLANTS that apply: Drains Drain details: 22 [place] Citizen three-way Sanchez Type of Anesthesia: General Estimated Blood Loss: 25 cc Specimen collected: Yes Description of specimen(s) removed: Prostate tissue Description of surgery: In the preoperative setting I discussed with the patient how the surgery would be done with expect afterwards. We discussed how a prostate resection is done and we discussed the risk of the surgery including, bleeding, infection, retrograde ejaculation, changes with ejaculation or intercourse,. We discussed the possibility that the resection of the prostate may not alleviate his urinary symptoms. We discussed the small risk of developing scar tissue along the urethral channel and strictures. We also discussed the chance of the prostate could grow back and he may need further surgery or treatment in the future for prostate problems. Patient was taken back to the operating room, timeout procedure was performed, he was identified and marked and placed on the operating room table. He underwent general anesthesia. He was placed in dorsolithotomy position. Penis and testicles were prepped and draped in usual sterile fashion. Went into the bladder using the visual obturator with a resectoscope. Once inside the bladder identified the right and left ureteral orifice. I then identified the prostate and the anatomy of the prostate. I marked out the area of the sphincter and the verumontanum was identified. I then proceeded with the prostate resection first resected the median lobe. And then resected the right lobe of the prostate. Then to resect the left lobe of the prostate. I then resected the apical tissue of the prostate. This was a complete resection of all obstructive tissue to improve voiding and relieve obstruction. I then made sure that there was no injury to the sphincter or the verumontanum was still intact. At the end of the resection all the chips were Ellik out of the bladder. I then identified the left and right ureteral orifice and these were confirmed to be in good position and effluxing and not injured. The resectoscope was removed, a 22 [place] catheter was placed into the bladder on continuous irrigation. And the urine was fairly light pink color and draining normally. He was taken back to the PACU in good condition. Surgical Findings: Large obstructive prostate that was resected protruding prostate. Banana Ripening Room Supervisor kiln drawer: No Complications Complications: No Admit VTE Documentation VTE Present on Admission: No VTE Mechan Device Prophylaxis: SCD's VTE Pharm Prophylaxis ordered?: No
--- NOTE | 2023-12-07 11:52 | PCM.POST.ANE ---
Anesthesia: Postop Eval I Current Vital Signs Temperature: 97.7 F Pulse Rate: 52 Blood Pressure: 143/62 Respiratory Rate: 14 Pulse Ox: 97 Oxygen Delivery Method: Room Air Assessment Airway patent: Yes Spontaneous unlabored respirations: Yes Mental status: Awake and Calm nausea: No Vomiting: No Anesthesia Complication: No Fluid Hydration Crystalloid volume administer (ml): 500 Total IV fluid infused: 500 Progress Note Anesthesia document: Postop Eval 1 completed: Yes
[2023-12-07] MEDS: Ketorolac 15 MG/ML Vial IV (12:21)
--- NOTE | 2023-12-07 16:46 | POSTOPAN2_ITS ---
Anesthesia Postop Eval I Sum Postop Eval Completion status Anesthesia document: Postop Eval 1 completed: Yes Anesthesia Postop Eval I Summary Anesthesia Postop Eval I Summary: Anesthesia Postop Eval I: Assessment Summary Airway patent Yes 12/07/23 11:58 [email or web address] Spontaneous unlabored Yes 12/07/23 11:58 [email or web address] respirations Mental status Awake,Calm 12/07/23 11:58 [email or web address] nausea No 12/07/23 11:58 [email or web address] Vomiting No 12/07/23 11:58 [email or web address] Anesthesia Postop Eval I: Fluid Summary Crystalloid volume administer 500 12/07/23 11:58 [email or web address] (ml) Colloids volume administered ( ml) Blood Product volume administered (ml) Total IV fluid infused 500 12/07/23 11:58 [email or web address] Anesthesia Postop Eval I: Summary Notes Anesthesia Complication No 12/07/23 11:58 [email or web address] Anesthesia Complication Comment: Post-operative progress note Anesthesia: Postop Eval II Evaluation Mental status: Awake and Calm Pain Level: 2 nausea: No Vomiting: No Complications Anesthesia Complication: No
--- NOTE | 2023-12-07 16:46 | PCM.POSTANE2 ---
Anesthesia Postop Eval I Sum Postop Eval Completion status Anesthesia document: Postop Eval 1 completed: Yes Anesthesia Postop Eval I Summary Anesthesia Postop Eval I Summary: Anesthesia Postop Eval I: Assessment Summary Airway patent Yes 12/07/23 11:58 [email or web address] Spontaneous unlabored Yes 12/07/23 11:58 [email or web address] respirations Mental status Awake,Calm 12/07/23 11:58 [email or web address] nausea No 12/07/23 11:58 [email or web address] Vomiting No 12/07/23 11:58 [email or web address] Anesthesia Postop Eval I: Fluid Summary Crystalloid volume administer 500 12/07/23 11:58 [email or web address] (ml) Colloids volume administered ( ml) Blood Product volume administered (ml) Total IV fluid infused 500 12/07/23 11:58 [email or web address] Anesthesia Postop Eval I: Summary Notes Anesthesia Complication No 12/07/23 11:58 [email or web address] Anesthesia Complication Comment: Post-operative progress note Anesthesia: Postop Eval II Evaluation Mental status: Awake and Calm Pain Level: 2 nausea: No Vomiting: No Complications Anesthesia Complication: No
[2023-12-07] MEDS: Tamsulosin HCl 0.4 MG Capsule PO (17:31)
[2023-12-07] MEDS: 0.9% Normal Saline (500mL Bag) 500 ML IV (18:33)
[2023-12-07] MEDS: Acetaminophen 500 MG Tablet PO (18:36)
[2023-12-07] MEDS: Ceftriaxone 1 GM/50 ML BAG IV (19:41)
[2023-12-07] MEDS: Atorvastatin Calcium 10 MG Tablet 5 MG PO (21:35)
[2023-12-07] MEDS: Docusate Sodium 100 MG Capsule 200 MG PO (21:35)
[2023-12-07] MEDS: Carvedilol 12.5 MG Tablet PO (21:35)
[2023-12-08 00:50] VITALS: BP 99/52; PULSE 58; RESP 16; TEMP 36.8; O2SAT 98
[2023-12-08 04:15] VITALS: BP 125/56; PULSE 71; RESP 16; TEMP 37.2; O2SAT 93
--- NOTE | 2023-12-08 07:35 | PCM.PN.GU ---
Subjective Subjective s/p turp urine clear d/c martin home after voids Objective Data Objective Data Vital Signs: Vital Signs Temp Pulse Resp BP Pulse Ox O2 Del Method O2 Flow Rate 98.9 F 71 16 125/56 H 93 Room Air 2 12/08/23 04:15 12/08/23 04:15 12/08/23 04:15 12/08/23 04:15 12/08/23 04:15 12/08/23 04:15 12/08/23 00:50 Oxygen Flow Rate (L/min) 2 Oxygen Delivery Method Room Air Weight: 60 kg Body Mass Index (BMI) 22.6 Intake & Output: Intake and Output for Last 24 Hours 12/06/23 12/07/23 12/08/23 23:59 23:59 23:59 Intake Total 908.5 / 1408.5 800 / 800 Output Total 400 / 400 300 / 300 Balance 508.5 / 1008.5 500 / 500
[2023-12-08 08:10] VITALS: BP 132/79; PULSE 78; RESP 16; TEMP 37.3; O2SAT 94
[2023-12-08] MEDS: amLODIPine 5 MG Tablet PO (08:33)
[2023-12-08] MEDS: Carvedilol 12.5 MG Tablet PO (08:33)
[2023-12-08] MEDS: Docusate Sodium 100 MG Capsule 200 MG PO (08:33)
[2023-12-08] MEDS: Pantoprazole Sodium 20 MG Tablet PO (08:33)
[2023-12-08 09:27] VITALS: O2SAT 95
--- NOTE | 2023-12-08 09:42 | CASEMGMT ---
RN CM noted DC order in place, into pt room. Pt states I at home, lives with . Denies any concerns or questions with going home.
[2023-12-08] MEDS: 0.9% Saline Lock 10 ML Syringe IV (10:47)
[2023-12-08] MEDS: Ceftriaxone 1 GM/50 ML BAG IV (10:47)
[2023-12-08 10:56] VITALS: O2SAT 93
[2023-12-08 14:12] VITALS: BP 118/47; PULSE 67; RESP 16; TEMP 36.8; O2SAT 99
[2023-12-08 15:09] LABS: INR Fingerstick 1.3
--- NOTE | 2023-12-08 15:09 | NURSING ---
pt states i started to pee in the urinal and then i went to sit down and the flood del cid opened and i peed a lot but it didn't make it in the urinal . denies any current feelings of urgency, states he feels he has emptied all the way and no urinary c/o. what urine was left in urinal is peachy pink.
[2023-12-15 12:07] LABS: INR Fingerstick 1.3
== END 2023-12-08 15:44 | disposition home or self-care (01) ==
LOC: SDC 08:35 → AC 09:53 → MS3 12:52
PROVIDERS: PCP Internal Medicine; Referring Provider Urology; Visit Provider Urology
PROC: 0VT08ZZ Resection of Prostate, Via Natural or Artificial Opening Endoscopic (ICD-10-PCS; CPT 52601; principal; 2023-12-07 10:30)
DX: N40.1 Benign prostatic hyperplasia with lower urinary tract symptoms (principal); I42.8 Other cardiomyopathies; E11.9 Type 2 diabetes mellitus without complications; N13.8 Other obstructive and reflux uropathy; K21.9 Gastro-esophageal reflux disease without esophagitis; E78.2 Mixed hyperlipidemia; I73.9 Peripheral vascular disease, unspecified; I25.10 Atherosclerotic heart disease of native coronary artery without angina pectoris; Z95.1 Presence of aortocoronary bypass graft; Z79.01 Long term (current) use of anticoagulants; Z86.73 Personal history of transient ischemic attack (TIA), and cerebral infarction without residual deficits; Z87.891 Personal history of nicotine dependence; Z79.899 Other long term (current) drug therapy
CPT/HCPCS: 52630; 00914; 36416; 85610; 88305; 94668; 99252; J7040; J7120; A4216; G0463; J2405

== ENCOUNTER → 2024-06-19 | Outpatient (CLI) | payer MEDICARE, OTHER, SELFPAY ==
--- NOTE | 2024-06-19 09:45 | RAD_ITS ---
EXAM: Single and double contrast esophagram. CLINICAL HISTORY: Dysphagia. COMPARISON: None. TECHNIQUE: Single and double contrast esophagram. FINDINGS: Prior sternotomy is noted. 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 A [id number]-[id number] sized paraesophageal hiatal hernia is seen. Recurrent esophageal spasm is seen, including tertiary contractions of the mid to distal esophagus. No persistent area of esophageal narrowing is seen. Easy passage of the 13 mm barium tablet into the stomach was noted. Limited imaging of the stomach and duodenum show no additional abnormality. RAD/Esophagus Dual Contrast IMPRESSION: 1. [id number]-cr-[id number] sized paraesophageal hiatal hernia. 2. Recurrent esophageal spasm, including tertiary contractions of the mid to di stal esophagus. No area of persistent narrowing is seen. Reading Location: [place] [id number]
== END | disposition home or self-care (01) ==
LOC: RAD 09:19
PROVIDERS: PCP Internal Medicine; Referring Provider Internal Medicine; Visit Provider Internal Medicine
DX: R13.10 Dysphagia, unspecified (principal)
CPT/HCPCS: 74221

== ENCOUNTER → 2024-11-27 | Outpatient (CLI) | payer MEDICARE, OTHER, SELFPAY | END | disposition home or self-care (01) | LOC: CVS 13:29 | PROVIDERS: PCP Internal Medicine; Referring Provider Internal Medicine; Visit Provider Internal Medicine | DX: I65.23 Occlusion and stenosis of bilateral carotid arteries (principal) | CPT/HCPCS: 93880 ==